=== PATIENT | male | born 2000 | race American Indian/Alaskan Native ===

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

== ENCOUNTER 2020-01-04 07:44 | Emergency (ER) | payer MEDICAID ==
[2020-01-04] MEDS ORDERED: IPRATROPIUM/ALBUTEROL SULFATE 3 ML AMPUL.NEB IH ONE (09:11)
--- NOTE | 2020-01-04 09:44 | Emergency Department Report ---
HPI - General Chief Complaint: Dyspnea/Respdistress Time Seen by Provider: 01/04/20 09:00 - [facility] HPI: Room 25 The patient is a 19-year-old male present with a chief complaint of shortness of breath. Patient states he began having shortness of breath yesterday while at rest. Patient states he feels restricted whenever he takes a deep breath then. Patient admits to pleurisy since yesterday. Patient denies history of cough or fever. Patient denies contact with known Covid positive patients. Patient denies any recent flights or long car trips. Patient denies palpitations ED Past Medical Hx - Past Medical History Previous Medical History?: Yes Hx Asthma: Yes - Surgical History Past Surgical History?: No - Family History Family history: no significant - Social History Smoking Status: Current Some Day Smoker (03/15 pack/day) Substance Use Type: None (Denies illicit drug use), Alcohol (Occasional) - Medications Home Medications: Home Medications Medication Instructions Recorded Confirmed Last Taken Type Albuterol Mdi (or & Nicu Only) 2 puff IH QID PRN #8.5 gram 01/04/20 Unknown Rx [ProAir HFA Inhaler] Ibuprofen [Motrin 800 MG tab] 800 mg PO Q8HR PRN #10 tablet 01/04/20 Unknown Rx ED Review of Systems ROS: Stated complaint: SOB Other details as noted in HPI Constitutional: denies: fever Eyes: denies: eye pain ENT: denies: throat pain Respiratory: shortness of breath, other (Pleurisy). denies: cough Cardiovascular: chest pain Endocrine: no symptoms reported Gastrointestinal: denies: abdominal pain Genitourinary: denies: dysuria Musculoskeletal: denies: back pain Neurological: denies: headache Physical Exam - Physical Exam Vital Signs: Vital Signs 01/04/20 08:43 Temperature 98.6 F Pulse Rate 47 L Respiratory 16 Rate Blood Pressure 117/77 O2 Sat by Pulse 99 Oximetry Physical Exam: GENERAL: The patient is well-developed well-nourished male lying on stretcher not appearing to be in acute distress. [] HEENT: Normocephalic. Atraumatic. Extraocular motions are intact. Patient has moist mucous membranes. NECK: Supple. Trachea midline CHEST/LUNGS: Clear to auscultation. There is no respiratory distress noted. HEART/CARDIOVASCULAR: Regular. There is no tachycardia. There is no gallop rub or murmur. ABDOMEN: Abdomen is soft, nontender. Patient has normal bowel sounds. There is no abdominal distention. SKIN: There is no rash. There is no edema. There is no diaphoresis. NEURO: The patient is awake, alert, and oriented. The patient is cooperative. The patient has normal speech MUSCULOSKELETAL: There is no evidence of acute injury. ED Course Vital Signs 01/04/20 08:43 Temperature 98.6 F Pulse Rate 47 L Respiratory 16 Rate Blood Pressure 117/77 O2 Sat by Pulse 99 Oximetry ED Medical Decision Making - Lab Data Result diagrams: 01/04/20 09:27 01/04/20 09:27 Laboratory Tests 01/04/20 01/04/20 01/04/20 09:27 09:27 09:27 WBC 4.3 L RBC 5.17 H Hgb 15.9 H Hct 46.3 H MCV 90 MCH 31 MCHC 34 RDW 12.9 L Plt Count 226 Lymph % (Auto) 43.2 H Hamilton % (Auto) 5.5 Eos % (Auto) 1.8 Baso % (Auto) 1.0 Lymph # (Auto) 1.9 Hamilton # (Auto) 0.2 Eos # (Auto) 0.1 Baso # (Auto) 0.0 Add Manual Diff Complete Seg Neutrophils % 48.5 Seg Neutrophils # 2.1 D-Dimer < 135 Sodium 142 Potassium 3.9 Chloride 102.7 Carbon Dioxide 29 Anion Gap 14 BUN 9 Creatinine 0.9 Estimated GFR > 60 BUN/Creatinine Ratio 10 Glucose 83 Calcium 9.9 Total Creatine Kinase 311 H CK-MB (CK-2) 5.8 H CK-MB (CK-2) Rel Index 1.8 Troponin T < 0.010 NT-Pro-B Natriuret Pep 41.31 - EKG Data -: EKG Interpreted by Me EKG shows normal: sinus rhythm Rate: bradycardia (49 bpm) - EKG Data When compared to previous EKG there are: previous EKG unavailable Interpretation: other (No ischemic changes seen) - Radiology Data Radiology results: report reviewed (Chest x-ray), image reviewed (Chest x-ray) interpreted by me: Chest x-ray-no focal infiltrates, no pneumothorax. No foreign body seen [facility] [address] [place] [address] XRay Report Signed Patient: ANASTASIYA SHELL MR#: [id number] 164 : 2000 Acct:[id number] Age/Sex: 19 / M ADM Date: 01/04/20 Loc: ED Attending Dr: Ordering Physician: MIKE HOLT MD Date of Service: 01/04/20 Procedure(s): XR chest routine 2V Accession Number(s): [id number] cc: MIKE HOLT MD Fluoro Time In Minutes: CHEST 2 VIEWS INDICATION: chest pain, shortness of breath. COMPARISON: None. FINDINGS: Support devices: None. Heart: Within normal limits. Lungs/Pleura: No acute air space or interstitial disease. No significant pleural effusion. IMPRESSION: No acute findings. Signer Name: Mauricio Coppola MD Signed: 01/04/2020 10:45 AM Workstation Name: [id number] Transcribed By: ES Dictated By: aMuricio Coppola MD Electronically Authenticated By: Mauricio Coppola MD Signed Date/Time: 01/04/20 104 DD/ 1044 TD/TT: - Differential Diagnosis Costochondritis, asthma exacerbation, bronchitis, PE, ACS Critical care attestation.: If time is entered above; I have spent that time in minutes in the direct care of this critically ill patient, excluding procedure time. ED Disposition Clinical Impression: Atypical chest pain Disposition: DC-01 TO HOME OR SELFCARE Is pt being admited?: No Does the pt Need Aspirin: No Condition: Stable Instructions: Chest Pain (ED) Additional Instructions: Return to the emergency department should you develop worsening symptoms, inability to tolerate food or liquids, high fever or any other concerns Prescriptions: Ibuprofen [Motrin 800 MG tab] 800 mg PO Q8HR PRN #10 tablet PRN Reason: Pain, Moderate (4-6) Albuterol Mdi (or & Nicu Only) [ProAir HFA Inhaler] 2 puff IH QID PRN #8.5 gram PRN Reason: Shortness Of Breath Referrals: CRAIG MANDUJANO JR, MD [Primary Care Provider] - 3-5 Days Time of Disposition: 11:43
[2020-01-04 10:05] LABS: Creatine Kinase MB 5.8 ng/mL (0.0-4.0)
[2020-01-04 10:09] LABS: BUN/Creatinine Ratio 10; Blood Urea Nitrogen 9 mg/dL (9-20); Calcium 9.9 mg/dL (8.4-10.2); Hemolysis Index 6
[2020-01-04 10:26] LABS: Eosinophils % (Auto) 1.8 % (0.0-4.3); Hematocrit 46.3 % (35.5-45.6); Hemoglobin 15.9 gm/dl (11.8-15.2); Lymphocytes % (Auto) 43.2 % (13.4-35.0); Mean Corpuscular HGB Conc 34 % (32-34); Mean Corpuscular Volume 90 fl (84-94); Monocytes % (Auto) 5.5 % (0.0-7.3); Platelet Count 226 K/mm3 (140-440); Red Blood Count 5.17 M/mm3 (3.65-5.03); Red Cell Distribution Width 12.9 % (13.2-15.2)
[2020-01-04 10:27] LABS: Eosinophils # (Auto) 0.1 K/mm3 (0.0-0.4); Lymphocytes # (Auto) 1.9 K/mm3 (1.2-5.4); Monocytes # (Auto) 0.2 K/mm3 (0.0-0.8)
--- NOTE | 2020-01-04 10:50 | XRay Report ---
CHEST 2 VIEWS INDICATION: chest pain, shortness of breath. COMPARISON: None. FINDINGS: Support devices: None. Heart: Within normal limits. Lungs/Pleura: No acute air space or interstitial disease. No significant pleural effusion. IMPRESSION: No acute findings. Signer Name: Mauricio Coppola MD Signed: 01/04/2020 10:45 AM Workstation Name: [id number]
[2020-01-04 12:14] VITALS: BP 116/78
== END 2020-01-04 12:13 | disposition home or self-care (01) ==
LOC: ED 07:44
DX: R07.89 Other chest pain (principal); R06.02 Shortness of breath; J45.909 Unspecified asthma, uncomplicated; F17.200 Nicotine dependence, unspecified, uncomplicated; Z79.1 Long term (current) use of non-steroidal anti-inflammatories (NSAID); Z79.899 Other long term (current) drug therapy
CPT/HCPCS: 36415; 71046; 80048; 82550; 82553; 83880; 84484; 85025; 85379; 93005; 94640; 94644